=== PATIENT | female | born 1975 | race Caucasian/White ===

== ENCOUNTER → 2017-08-30 | Outpatient (CLI) | payer OTHER ==
[~2017-08-30] MED LIST: AMBCR125 PO; ASTN; BCPILLS PO; CHOLTAB3 PO; CLCC1250 PO; CLON1TAB3 PO; CLR10 PO; CRG40 PO; CYAN500T PO; DOMPERIDONE; ESCI1TAB6 PO; HYDR5TAB PO; IPRA0.037; LIDO5DIS10; LYR50 PO; METO-157 PO; MIDODRINE PO; MULT-506 PO; PREG1CAP36 PO; SNG10 PO; TYLUNK; ZFRODT4 SL; [UNRECOGNIZED DRUG - OTHER]
== END | disposition home or self-care (01) ==
LOC: C.LABBC 14:48
DX: J30.9 Allergic rhinitis, unspecified (principal)